=== PATIENT | female | born 1995 | race Caucasian/White ===

== ENCOUNTER → 2018-01-13 | Outpatient (CLI) | payer OTHER | LOC: M RAD 09:50 | DX: J30.9 Allergic rhinitis, unspecified (principal); J34.2 Deviated nasal septum; J32.0 Chronic maxillary sinusitis; J32.1 Chronic frontal sinusitis | CPT/HCPCS: 70486 ==

== ENCOUNTER 2018-05-18 07:43 | Day surgery (SDC) | payer OTHER ==
[~2018-05-18 07:43] MED LIST: LR 1,000 ML IV
[2018-05-18] MEDS ORDERED: PROPOFOL 200 MG/20 ML VIAL As Ordered (08:29)
[2018-05-18] MEDS ORDERED: FLUMAZENIL 0.5 MG/5 ML VIAL As Ordered (08:29)
[2018-05-18] MEDS ORDERED: fentaNYL 100 MCG/2 ML INJECTION (J3010) As Ordered (08:29)
[2018-05-18] MEDS ORDERED: MIDAZOLAM INJ 2 MG/2 ML VIAL (J2250) As Ordered (08:29)
[2018-05-18] MEDS ORDERED: ONDANSETRON 4MG/2ML VIAL (J2405) As Ordered (08:29)
[2018-05-18] MEDS ORDERED: GLYCOPYRROLATE INJ 0.2 MG/ML 2 ML VIAL As Ordered ×2 (08:29→18:43)
[2018-05-18] MEDS ORDERED: NEOSTIGMINE 10 MG/10 ML VIAL (J2710) As Ordered (08:29)
[2018-05-18] MEDS ORDERED: LIDOCAINE 2% INJ 100 MG/5 ML SDV (FOR ANES.) As Ordered (08:32)
[2018-05-18 08:38] LABS: CONTROL LINE UCG INT CTR LINE PRESENT; URINE PREG TEST NEGATIVE (NEGATIVE)
[2018-05-18] MEDS ORDERED: ROCURONIUM BROMIDE 50 MG/5 ML VIAL As Ordered ×2 (08:46→11:54)
[2018-05-18] MEDS: SODIUM CHLORIDE 0.9% NASAL GEL 15GM (AYR) As Ordered (09:20)
[2018-05-18] MEDS: dexameTHASONE 4 MG/ML 1ML VIAL (J1100) IV (09:45)
[2018-05-18] MEDS ORDERED: LABETALOL HCL 100 MG/20 ML VIAL As Ordered (10:30)
[2018-05-18] MEDS: EPINEPHrine 1MG/ML INJ 30ML MD-VIAL As Ordered ×2 (10:41→12:00)
[2018-05-18] MEDS ORDERED: diphenhydrAMINE INJ 50MG/ML VIAL (J1200) As Ordered (10:59)
[2018-05-18] MEDS ORDERED: HYDROmorphone HCL 2 MG/ML 1ML VIAL (J1170) As Ordered (11:00)
[2018-05-18] MEDS ORDERED: PHENYLephrine HCL 500 MCG/5 ML (100MCG/ML) SYRINGE (J2370) As Ordered (11:17)
[2018-05-18] MEDS: LIDOCAINE W/EPINEPHRINE 1% 20ML VIAL As Ordered (12:30)
[2018-05-18] MEDS ORDERED: SUGAMMADEX SODIUM 500 MG/5 ML VIAL (BRIDION) As Ordered (12:40)
[2018-05-18] MEDS ORDERED: ONDANSETRON 4MG/2ML VIAL (J2405) IV (13:15)
[2018-05-18] MEDS ORDERED: LR 1,000 ML IV ×2 (13:15)
[2018-05-18] MEDS ORDERED: fentaNYL 100 MCG/2 ML INJECTION (J3010) IV (13:15)
[2018-05-18] MEDS ORDERED: NORCO, ANEXSIA 5/325MG TABLET (HYDROcodone/ACETAMINOPHEN) As Ordered (15:37)
[2018-05-18] MEDS: NORCO, ANEXSIA 5/325MG TABLET (HYDROcodone/ACETAMINOPHEN) PO (15:39)
== END 2018-05-18 16:15 | disposition home or self-care (01) ==
LOC: M SDC 07:43
DX: J32.0 Chronic maxillary sinusitis (principal); J32.2 Chronic ethmoidal sinusitis; J33.9 Nasal polyp, unspecified; E03.9 Hypothyroidism, unspecified; J30.9 Allergic rhinitis, unspecified; R51 Headache; J45.909 Unspecified asthma, uncomplicated; R06.83 Snoring; R06.02 Shortness of breath; G47.9 Sleep disorder, unspecified; Z88.2 Allergy status to sulfonamides; Z79.899 Other long term (current) drug therapy
CPT/HCPCS: 31256